=== PATIENT | female | born 1995 | race Caucasian/White ===

== ENCOUNTER 2023-10-30 21:05 | Emergency (ER) | payer OTHER ==
[2023-10-30 21:44] LABS: BASOPHILS PERCENT AUTO 0.1 % (0.0-1.0); EOSINOPHILS PERCENT AUTO 0.9 % (1.0-3.0); HEMATOCRIT 36.5 % (37.0-47.0); LYMPHOCYTES PERCENT AUTO 18.7 % (20.5-50.1); MEAN CORPUSCULAR HEMOGLOBIN 28.6 pg (27.0-34.0); MEAN CORPUSCULAR HGB CONC 32.9 g/dL (33.0-35.0); MEAN CORPUSCULAR VOLUME 86.9 fL (80-100); MONOCYTES PERCENT AUTO 7.3 % (2-8); PLATELET COUNT,PLT 298 10^3/uL (150-450); WHITE BLOOD CELL COUNT,WBC 11.3 10^3/uL (5.0-10.0)
[2023-10-30] MEDS: Ondansetron 4 MG/2 ML SDV IVPUSH ONE (21:48)
[2023-10-30] MEDS: Sodium Chloride 0.9% 1,000 ML IV SCH (21:48)
[2023-10-30 21:58] LABS: ANION GAP 14.5 mEq/L (7-13); CALCIUM 8.9 mg/dL (8.5-10.1); CREATININE 1.08 mg/dL (0.55-1.02); POTASSIUM,K 3.5 mmol/L (3.5-5.1)
[2023-10-30 22:05] LABS: EST CRCL DRUG DOSING (CG) 69.78 mL/min
[2023-10-30 22:32] LABS: APPEARANCE,URINE TURBID (CLEAR); COLOR,URINE AMBER (YELLOW); PH,URINE 6.5 (5.0-9.0)
[2023-10-30 22:33] LABS: BILIRUBIN,URINE NEGATIVE (NEGATIVE); GLUCOSE,URINE NEGATIVE (NEGATIVE); KETONES,URINE NEGATIVE (NEGATIVE); OCCULT BLOOD,URINE LARGE (NEGATIVE); PROTEIN,URINE 100 (NEGATIVE)
[2023-10-30 22:34] LABS: LEUKOCYTE ESTERASE,URINE SMALL (NEGATIVE); NITRITE,URINE NEGATIVE (NEGATIVE); UROBILINOGEN,URINE 0.2 mg/dL (0.2-1.0)
[2023-10-30 22:58] LABS: BACTERIA,URINE MODERATE /HPF (0-FEW/HPF); EPITHELIAL CELLS,URINE FEW /HPF (NOT SEEN); RBC,URINE PACKED /HPF (0-5)
[2023-10-31] MEDS: Methylergonovine 0.2 MG/1 ML Amp IM PRN (01:01)
[2023-10-31] MEDS: Methylergonovine 0.2 MG/1 ML Amp IM STA (01:01)
[2023-10-31] MEDS: Sodium Chloride 0.9% 1,000 ML IV SCH (01:24)
== END 2023-10-31 01:36 ==
LOC: DL.ED 21:05
DX: O03.4 Incomplete spontaneous abortion without complication (principal)
CPT/HCPCS: 36415; 76856; 80048; 81001; 81025; 84702; 85025; 86900; 86901; 87086; 96361; 96372; 96374; 99284; 99285-25; J2210; J2405; J7030